=== PATIENT | female | born 1990 | race Caucasian/White ===

== ENCOUNTER 2018-03-17 22:12 | Emergency (ER) | payer BC, OTHER ==
[~2018-03-17] VITALS: Ht 160 cm; Wt 45.4 kg
--- NOTE | 2018-03-17 22:20 | NUR ---
PT CAME TO ER COMPLAINING OF ABD PAIN, NAUSEA, VOMITTING, AND DIARRHEA X 6 HOURS. PT WHEELCHAIRED TO ER BED 3. PT PUT ON THE MONITOR AND PULSE OX. PT PALE, COOL TO THE TOUCH, SLOW TO REACT, HYPOTENSIVE. RESPIRATIONS EVEN AND UNLABORED. PT HYPOTENSIVE ON THE MONITOR. PT AWAITING EVAL FROM ER .
[2018-03-17] MEDS ORDERED: IV NS 0.9% 1,000 ML BAG IV ONE (22:30)
[2018-03-17] MEDS ORDERED: ONDANSETRON HCL/PF 4 MG/2 ML VIAL IVP ONE (22:30)
--- NOTE | 2018-03-17 22:30 | NUR ---
ER MD AT BEDSIDE. IV 20G R AC AND 18G L AC STARTED AND CONVERTED TO SALINE LOCK AND PT GIVEN FLUID PER ER MD ORDERS.
[2018-03-17] MEDS ORDERED: ONDANSETRON HCL/PF 4 MG/2 ML VIAL ONE (22:34)
[2018-03-17 22:40] LABS: EOSINOPHILS % (AUTO) 0.1 % (0.0-6.0); HEMATOCRIT 49 % (33-45); HEMOGLOBIN 16.3 g/dL (11.5-14.8); LYMPHOCYTES # (AUTO) 0.6 /CMM (0.8-4.8); LYMPHOCYTES % (AUTO) 4.7 % (20.0-44.0); MEAN CORPUSCULAR HGB CONC 34 g/dl (31.0-36.0); MEAN CORPUSCULAR VOLUME 91 fL (82-100); MONOCYTES # (AUTO) 0.3 /CMM (0.1-1.30); MONOCYTES % (AUTO) 2.7 % (2.0-12.0); NEUTROPHILS # (AUTO) 11.3 /CMM (1.8-8.9); NEUTROPHILS % (AUTO) 92.5 % (43.0-81.0); PLATELET COUNT (AUTO) 377 /CMM (150-450); RED BLOOD CELL COUNT(AUTO) 5.36 MIL/uL (4.0-5.2); WHITE BLOOD COUNT (AUTO) 12.2 K/uL (4.3-11.0)
[2018-03-17 23:18] LABS: ALBUMIN 4.3 g/dL (3.4-5.0); BILIRUBIN,DIRECT 0.1 mg/dL (0.0-0.2); BILIRUBIN,TOTAL 0.5 mg/dL (0.2-1.0); CREATININE 1.3 mg/dL (0.6-1.3); TOTAL PROTEIN, SERUM 8.3 g/dL (6.4-8.2)
--- NOTE | 2018-03-17 23:45 | NUR ---
Patient is resting comfortably in bed with eyes closed. Easily aroused. VSS. NAD NOTED. PT MOTHER AT BEDSIDE.
[2018-03-18] MEDS ORDERED: POTASSIUM CHLORIDE 20 MEQ TAB.PRT.SR PO ONE ×2 (00:11→00:30)
[2018-03-18] MEDS ORDERED: ONDANSETRON HCL/PF 4 MG/2 ML VIAL ONE (00:57)
[2018-03-18] MEDS ORDERED: IV NS 0.9% 1,000 ML BAG IV ONE (01:00)
[2018-03-18] MEDS ORDERED: ONDANSETRON HCL/PF 4 MG/2 ML VIAL IVP ONE (01:00)
--- NOTE | 2018-03-18 01:00 | NUR ---
PT AMBULATED AND STILL FEELS WEAK AND HAVING NAUSEA. ER MD NOTIFIED. WILL CARRY OUT ORDERS.
--- NOTE | 2018-03-18 01:10 | NUR ---
PT DIARRHEA NOTED RED. ER MD AWARE AND WANTS STOOL SAMPLE. SAMPLE SENT TO LAB.
[2018-03-18] MEDS ORDERED: LOPERAMIDE HCL (2 MG CAP) 2 MG CAPSULE PO ONE ×2 (02:14→02:30)
--- NOTE | 2018-03-18 02:33 | NUR ---
Patient discharged to home in stable condition. Written and verbal after care instructions given. Patient verbalizes understanding of instruction. IV removed. Catheter intact and site benign. Pressure and 4x4 applied to site. No bleeding noted.
[2018-03-18 02:34] VITALS: BP 110/84
[2018-03-18] MEDS ORDERED: METOCLOPRAMIDE HCL 10 MG/2 ML VIAL ONE (19:09)
== END 2018-03-18 02:36 | disposition home or self-care (01) ==
LOC: ER 22:17
DX: R11.2 Nausea with vomiting, unspecified (principal); R19.7 Diarrhea, unspecified; R10.33 Periumbilical pain; E03.9 Hypothyroidism, unspecified; Z90.89 Acquired absence of other organs
CPT/HCPCS: 36415; 80048; 80076; 83690; 84702; 85025; 87015; 87045; 87427 ×3; 87804 ×2; 89055; 96361; 96374 ×2; 99283; A4606; J2405 ×2; J7030 ×2; Z7610; 87400; J2765